=== PATIENT | male | born 1990 | race Caucasian/White ===

== ENCOUNTER 2016-11-12 10:38 | Emergency (ER) | payer MEDICAID ==
[2016-11-12 10:48] VITALS: BP 157/98
[2016-11-12] MEDS ORDERED: ONDANSETRON HCL/PF 2 MG/ML VIAL IV ONE (10:55)
[2016-11-12] MEDS ORDERED: NORMAL SALINE 1,000 ML IV ONE (10:55)
--- NOTE | 2016-11-12 10:59 | ERNOTE ---
Medical Problem HPI - Narrative Date of Service: 11/12/16 - General Chief Complaint: Nausea/Vomiting Time Seen by Provider: 11/12/16 10:50 Source: patient Exam Limitations: no limitations - Immun/Allergies/Home Medications Immunizations: IMMUNIZATION HX History of Influenza Vaccine No Hx Pneumococcal Vaccination No Allergies/Adverse Reactions: Allergies No Known Allergies Allergy (Verified 11/12/16 10:48) Home Medications: HOME MEDICATIONS Ondansetron [Zofran Odt] 4 mg PO Q6H PRN #20 tab 11/12/16 [Last Taken Unknown] - History of Present History Narrative: Pt. comes in with c/o nausea and vomiting and diarrhea for three days. Pt. denies any fever, SOB, CP, abd pain, but does state that he has had occasional diaphoresis. Pt. denies any prehospital treatment but does state that he has not been able to tolerate any foods or fluids. Review of Systems - Review of Systems Constitutional: Present: chills, diaphoresis, weakness, fatigue, malaise. Absent: recent illness, fever EYE: Present: no symptoms reported ENT: Present: no symptoms reported. Absent: nose pain, nose congestion, nasal drainage, sore throat Respiratory: Present: no symptoms reported. Absent: shortness of breath, cough , wheezing Cardiology: Present: no symptoms reported. Absent: chest pain, palpitations, edema Gastrointestinal/Abdominal: Present: nausea, vomiting, diarrhea, eating less, drinking less. Absent: constipation, abdominal pain Genitourinary: Present: no symptoms reported. Absent: frequency, pain, decreased urinary output Musculoskeletal: Present: no symptoms reported. Absent: back pain, joint pain Skin: Present: no symptoms reported. Absent: rash, change in color, change in hair/nails Neurological: Present: no symptoms reported. Absent: headache, dizziness/light- headedness, numbness, tingling All Other Systems: All systems neg except as marked - Patient's Past Medical History Patient History - Medical: No pertinent hx Patient History - Cardiac/Respiratory: No pertinent hx Patient History - Cancer: No Hx of Cancer Patient History - Surgical Procedures: No surgical history Patient History - Other: None - Social History Living Situations: home Abuse History: No History of abuse Psych History: No pertinent hx Smoking Status: Current every day smoker Alcohol Use: none Drug Use: none - Immunizations Hx Pneumococcal Vaccination: No History of Influenza Vaccine: No Physical Exam - Physical Exam General Appearance: Present: wd/wn, alert, no apparent distress Eye Exam: Normal inspection: bilateral, PERRL: bilateral, EOMI: bilateral Ears, Nose, Throat: Present: normal ENT inspection, normal pharynx Neck: Present: normal inspection, nontender. Absent: lymphadenopathy (R), lymphadenopathy (L) Respiratory: Present: no respiratory distress, normal breath sounds, no accessory muscle use, chest nontender, lungs clear Cardiovascular/Chest: Present: no murmur, normal peripheral pulses, tachycardia Gastrointestinal/Abdominal: Present: normal bowel sounds, nontender, nondistended, soft, no organomegaly. Absent: McBurney sign, Obturator sign, Viveros sign, Psoas sign, mass, hernia, hepatomegaly Back Exam: Present: normal inspection, normal range of motion, no CVA tenderness , no vertebral tenderness. Absent: muscle spasm Extremity Exam: Present: normal inspection, non-tender, normal range of motion, no edema Neurological Exam: Present: alert, oriented, normal mood/affect, no motor/ sensory deficits Skin Exam: Present: diaphoresis, pallor. Absent: skin rash ED Progress - Results and Orders Patient's Lab Results:: I have reviewed the patient's lab results. - Vital Signs Patient's Vital Signs:: I have reviewed the patient's vital signs. Vital Signs: Vital Signs 11/12/16 10:42 Temperature 36.9 C Pulse Rate 96 Respiratory 15 Rate Blood Pressure 157/98 O2 Sat by Pulse 100 Oximetry - Progress/Reassessment Chief Complaint: Nausea/Vomiting Progress:: Improved Departure - Departure Clinical Impression: Acute gastroenteritis Disposition: Home self-care Condition: Good Instructions: Viral Gastroenteritis, Adult, [id number], Form - Excuse from Work, School, or Physical Activity Additional Instructions: Please follow up with primary provider in 2-3 days. Prescriptions: Ondansetron [Zofran Odt] 4 mg PO Q6H PRN #20 tab PRN Reason: Nausea
[2016-11-12] MEDS ORDERED: ONDANSETRON HCL/PF 2 MG/ML VIAL ONE (11:03)
[2016-11-12 11:16] LABS: Hematocrit 50.4 % (42.0-52.0); Hemoglobin 17.8 gm/dL (13.5-18.0); Mean Cell Volume 83.2 fl (78-100); Mean Corpuscular Hemoglobin 29.4 pg (27-31); Mean Corpuscular Hgb Conc 35.3 g/dl (32-36); Mean Platelet Volume 9.5 fl (6.0-9.5); Neutrophil # 3.1 K/mm3 (1.3-6.0); Neutrophil % 60.2 % (42-75.0); Platelet Count 311 K/mm3 (150-450); Red Blood Count 6.06 M/mm3 (4.7-6.0); White Blood Count 5.1 K/mm3 (4.0-10.5)
[2016-11-12 11:32] LABS: Albumin * 4.5 gm/dl (3.4-5.0); Anion Gap 14.8 mmol/L (6.8-13.8); Bilirubin, Total 0.6 mg/dL (0.0-1.1); Ca. Corrected For Albumin 8.8 mg/dL (8.4-10.2); Calcium * 9.5 mg/dL (7.9-10.9); Carbon Dioxide 29.2 mmol/L (24-32.6); Total Protein 8.8 gm/dL (6.2-8.2)
== END 2016-11-12 12:24 | disposition home or self-care (01) ==
LOC: ER 10:38
DX: K52.9 Noninfective gastroenteritis and colitis, unspecified (principal); F17.210 Nicotine dependence, cigarettes, uncomplicated

== ENCOUNTER 2017-02-13 15:08 | Emergency (ER) | payer MEDICAID ==
--- NOTE | 2017-02-13 16:06 | ERNOTE ---
Medical Problem HPI - Narrative Date of Service: 02/13/17 - General Chief Complaint: Nausea/Vomiting Time Seen by Provider: 02/13/17 15:28 - Immun/Allergies/Home Medications Immunizations: IMMUNIZATION HX Immunizations Up to Date Yes History of Influenza Vaccine No Hx Pneumococcal Vaccination No Allergies/Adverse Reactions: Allergies No Known Allergies Allergy (Verified 02/13/17 15:43) Home Medications: HOME MEDICATIONS NK [No Home Medication] 02/13/17 [Last Taken Unknown] - History of Present History Narrative: 26-year-old healthy white male presents because of vomiting soups. She states since yesterday he has vomited couple times. However he states he is able to eat burgers without any difficulty. He states he can drink all fluids including Gatorade without any difficulty. He has no systemic signs of illness such as fever or chills. Denies any abdominal pain. Denies any diarrhea or constipation. He merely states that when he eats ramen noodles he has vomited a couple times Review of Systems - Narrative Narrative: Patient has no history in his family of inflammatory bowel disease. No history of bloody stools. History of renal complaints. - Review of Systems Constitutional: Present: no symptoms reported EYE: Present: no symptoms reported ENT: Present: no symptoms reported Respiratory: Present: no symptoms reported Cardiology: Present: no symptoms reported Gastrointestinal/Abdominal: Present: nausea, vomiting. Absent: constipation, abdominal pain, eating less, drinking less Genitourinary: Present: no symptoms reported Musculoskeletal: Present: no symptoms reported Skin: Present: no symptoms reported Neurological: Present: no symptoms reported Endocrine: Present: no symptoms reported Hematologic/Lymphatic: Present: no symptoms reported All Other Systems: All systems neg except as marked - Patient's Past Medical History Patient History - Medical: No pertinent hx Patient History - Cardiac/Respiratory: No pertinent hx Patient History - Cancer: No Hx of Cancer Patient History - Surgical Procedures: No surgical history Patient History - Other: None - Social History Living Situations: home Abuse History: No History of abuse Psych History: No pertinent hx Smoking Status: Current every day smoker Have you smoked in the past 12 months: Yes Alcohol Use: occasionally Drug Use: marijuana - Immunizations Immunizations Up to Date: Yes Hx Pneumococcal Vaccination: No History of Influenza Vaccine: No Physical Exam - Physical Exam General Appearance: Present: wd/wn, alert, no apparent distress Eye Exam: Normal inspection: bilateral, EOMI: bilateral Ears, Nose, Throat: Present: normal ENT inspection Neck: Present: normal inspection, nontender Respiratory: Present: no respiratory distress, normal breath sounds, no accessory muscle use, chest nontender, lungs clear Cardiovascular/Chest: Present: regular rate, rhythm, no murmur, normal peripheral pulses Gastrointestinal/Abdominal: Present: normal bowel sounds, nontender, nondistended, soft, no organomegaly. Absent: tenderness, abnormal bowel sounds , distended, guarding, rebound, McBurney sign Back Exam: Present: normal inspection Neurological Exam: Present: alert, oriented, no motor/sensory deficits Skin Exam: Present: normal color, warm/dry ED Progress - Vital Signs Patient's Vital Signs:: I have reviewed the patient's vital signs. Vital Signs: Vital Signs 02/13/17 15:39 Temperature 36.6 C Pulse Rate 62 Respiratory 16 Rate Blood Pressure 141/86 O2 Sat by Pulse 97 Oximetry - Progress/Reassessment Chief Complaint: Nausea/Vomiting Plan - Plan Plan: Patient advised to take [id number] antacids and avoid foods that he has difficulty with. Return if any pain or worsening of condition or other problems. Departure - Departure Clinical Impression: Vomiting Qualifiers: Vomiting type: unspecified Vomiting Intractability: non-intractable Nausea presence: without nausea Qualified Code(s): R11.11 - Vomiting without nausea Disposition: Home self-care Condition: Good Instructions: Nausea, Adult Additional Instructions: Patient should return if abdominal pain, fever, worsening vomiting or problems.
[2017-02-13 16:20] VITALS: BP 128/83
== END 2017-02-13 16:10 | disposition home or self-care (01) ==
LOC: ER 15:08
DX: R11.11 Vomiting without nausea (principal); F17.200 Nicotine dependence, unspecified, uncomplicated